=== PATIENT | male | born 1990 | race African-American/Black ===

== ENCOUNTER 2016-12-05 11:45 | Emergency (ER) | payer OTHER ==
[~2016-12-05] VITALS: Ht 175.3 cm; Wt 77.1 kg
[2016-12-05 11:47] VITALS: BP 137/88
[2016-12-05] MEDS ORDERED: KEFLEX500 MG PO (12:18)
== END 2016-12-05 12:18 | disposition home or self-care (01) ==
LOC: ER 11:45
DX: S00.461A Insect bite (nonvenomous) of right ear, initial encounter (principal); L03.818 Cellulitis of other sites; F17.200 Nicotine dependence, unspecified, uncomplicated; W57.XXXA Bitten or stung by nonvenomous insect and other nonvenomous arthropods, initial encounter; Y93.89 Activity, other specified; Y92.89 Other specified places as the place of occurrence of the external cause; Y99.8 Other external cause status

== ENCOUNTER 2019-07-09 19:54 | Emergency (ER) | payer OTHER ==
[~2019-07-09] VITALS: Ht 175.3 cm; Wt 86.2 kg
[~2019-07-09 19:54] MED LIST: KEFLEX500 MG PO
[2019-07-10 00:56] LABS: ABSOLUTE NEUTROPHILS 3.9 thou/uL (1.4-8.2); BASOPHILS 0.5 % (0.0-2.0); EOSINOPHILS 1.4 % (0.0-3.0); HEMATOCRIT 41.4 % (42.0-52.0); HEMOGLOBIN 13.4 gm/dL (14.0-18.0); LYMPHOCYTES 32.1 % (24.0-44.0); MCH 28.5 pg (26.0-34.0); MCHC 32.4 g/dL (28.0-37.0); MONOCYTES 9.7 % (1.0-8.0); PLATELET COUNT 207 thou/uL (150-400); POLYS 56.3 % (36.0-66.0); RBC 4.71 mil/uL (4.50-6.00); RDW 13.5 % (10.5-14.5)
[2019-07-10 00:58] LABS: CALCIUM 8.8 mg/dL (8.5-10.1); CREATININE 0.9 mg/dL (0.7-1.3); POTASSIUM 3.9 mmol/L (3.5-5.1)
[2019-07-10 01:29] VITALS: BP 121/63
== END 2019-07-10 01:30 | disposition home or self-care (01) ==
LOC: ER 19:54
PROVIDERS: Emergency Medicine
DX: R19.7 Diarrhea, unspecified (principal); Z87.891 Personal history of nicotine dependence

== ENCOUNTER 2019-11-15 20:27 | Emergency (ER) | payer OTHER ==
[~2019-11-15] VITALS: Ht 175.3 cm; Wt 88.5 kg
[2019-11-15] MEDS ORDERED: PERCOCET 5-3251 EACH PO (21:12)
[2019-11-15 21:30] VITALS: BP 137/87
== END 2019-11-15 21:30 | disposition home or self-care (01) ==
LOC: ER 20:27
DX: S62.314A Displaced fracture of base of fourth metacarpal bone, right hand, initial encounter for closed fracture (principal); Z87.891 Personal history of nicotine dependence; W22.8XXA Striking against or struck by other objects, initial encounter; Y93.89 Activity, other specified; Y92.89 Other specified places as the place of occurrence of the external cause; Y99.8 Other external cause status